=== PATIENT | male | born 1980 | race African-American/Black ===

== ENCOUNTER 2017-10-17 11:31 | Emergency (ER) | payer MEDICAID ==
[~2017-10-17] VITALS: Ht 172.7 cm; Wt 95.0 kg
[2017-10-17 12:40] LABS: CHLORIDE 102 mEq/L (98-107)
[2017-10-17 12:42] LABS: BASOPHILS % 0.6 % (0.0-2.0); EOSINOPHILS % 0.1 % (0.0-5.0); HEMATOCRIT. 43.1 % (42.0-52.0); HEMOGLOBIN. 14.1 g/dL (14.0-18.0); LYMPHOCYTES % 24.5 % (20.0-50.0); MEAN CORPUSCULAR HEMOGLOBIN 27.2 pg (28.0-32.0); MEAN PLATELET VOLUME 7.1 fl (7.4-10.4); NEUTROPHILS % 66.8 % (40.0-76.0); PLATELET 333 x1000/uL (130-400); RED CELL DISTRIBUTION WIDTH 14.8 % (11.6-14.6)
[2017-10-17 12:49] LABS: CARBON DIOXIDE 21 mEq/L (21-32); ETHANOL BLOOD < 10 mg/dL
[2017-10-17 15:29] VITALS: BP 134/72
== END 2017-10-17 15:42 | disposition home or self-care (01) ==
LOC: ER 11:42
DX: R45.1 Restlessness and agitation (principal); N28.9 Disorder of kidney and ureter, unspecified; R41.82 Altered mental status, unspecified; F17.200 Nicotine dependence, unspecified, uncomplicated
CPT/HCPCS: 36415; 80053; 80307; 80329; 85025; 99284; G0482